=== PATIENT | female | born 1945 | race Caucasian/White ===

== ENCOUNTER 2019-04-13 10:04 | Day surgery (SDC) | payer MEDICARE, BC ==
[~2019-04-13] VITALS: Ht 167.6 cm; Wt 85.7 kg
[~2019-04-13 10:04] MED LIST: ATOR40TA21 PO; CITA20TA8; GLIPIZIDE PO; LOSA50TA2 PO; METF-480 PO; PANT40TA4 PO
[2019-04-13 10:50] VITALS: Ht 167.6 cm; Wt 85.7 kg
--- NOTE | 2019-04-13 11:02 | PREAC ---
Date/Time of Note Date/Time of Note DATE: 04/13/19 TIME: 11:00 Anesthesia Eval and Record Evaluation Time Pre-Procedure Interview DATE: 04/13/19 TIME: 11:00 Age 74 Sex female NPO: 8 hrs Preoperative diagnosis Changes of Bowel Habit Planned procedure Colonoscopy Past Medical History Past Medical History: Includes Cardio: HTN, Dyslipidemia Endo: Diabetes, Hypothyroid GI: GERD Surgery & Anesthesia Issues No known issue Meds Anticoagulation: No Beta Kati within 24 hr: No Reason Beta Kati not given: Pt. not on B-Kati Reported Medications [Glipizide] No Conflict Check, PO AM 06/20/15 Atorvastatin (Lipitor) 40 Mg Tablet, 40 MG PO DAILY 01/31/13 Losartan Potassium* (Cozaar*) 50 Mg Tablet, 50 MG PO DAILY 01/31/13 Pantoprazole* (Pantoprazole*) 40 Mg Tablet.dr, 40 MG PO DAILY 01/31/13 Metformin* (Glucophage*) 850 Mg Tablet, 850 MG PO BID 01/31/13 Citalopram Hydrobromide* (Citalopram Hydrobromide*) 20 Mg Tablet 09/11/10 Meds reviewed: Yes Allergies Coded Allergies: Penicillins (Verified Allergy, Severe, RASHES, 06/20/15) Allergies Reviewed: Yes Labs/Studies Labs Reviewed: Reviewed by anesthesiologist test: N/A Studies: ECG (n/a), CXR (n/a) Pre-procedure Exam Airway: Adequate mouth opening, Adequate thyromental dist Mallampati: Mallampati II Teeth: Normal Lung: Normal Heart: Normal ASA Physical Status ASA physical status: 3 Emergency: None Planned Anesthetic General/MAC: MAC Planned Pain Management Parenteral pain med Pre-operative Attestations Prior to commencing anesthesia and surgery, the patient was re-evaluated, there was verification of: *The patient's identity *The results of appropriate recent lab work and preoperative vital signs *The above evaluation not changing prior to induction *Anesthetic plan, risk benefits, alternative and complications discussed with patient/family; questions answered; patient/family understands, accepts and wishes to proceed. SOBIA TEMPLETON MD April 13, 2019 11:02
[2019-04-13] MEDS ORDERED: ISOSORBIDE MONO (11:07)
[2019-04-13] MEDS ORDERED: AMLODIPINE (11:07)
[2019-04-13] MEDS ORDERED: LEVOTHYROXINE (11:07)
[2019-04-13] MEDS ORDERED: ROSUVASTATIN (11:07)
[2019-04-13 11:17] VITALS: BP 189/88; PULSE 63; RESP 19
[2019-04-13] MEDS ORDERED: PROPOFOL 60 ML ONE (11:48)
--- NOTE | 2019-04-13 11:49 | PAC ---
Date/Time of Note Date/Time of Note DATE: 04/13/19 TIME: 11:49 Post-Anesthesia Notes Post-Anesthesia Note Last documented vital signs T: 98.0 Activity: WNL Respiratory function: WNL Cardiovascular function: WNL Mental status: Baseline Pain reasonably controlled: Yes Hydration appropriate: Yes Nausea/Vomiting absent: Yes SOBIA TEMPLETON MD April 13, 2019 11:49
[2019-04-13 12:00] VITALS: BP 133/74; PULSE 84; RESP 15
[2019-04-13 12:15] VITALS: BP 144/65; PULSE 62; RESP 20
--- NOTE | 2019-04-14 10:10 | CONS ---
DATE OF ADMISSION: 04/13/2019 DATE OF CONSULTATION: PATIENT NAME: RANJEET GARCIA TYPE OF CONSULTATION: Preoperative gastroenterology. Dear Dr. Parekh: I thank you very much for this kind referral. HISTORY OF PRESENT ILLNESS: Ms. Ranjeet Garcia is a 74-year-old female patient who has been referred t o me for further evaluation of change in the bowel habit with diarrhea. No history of rectal bleedin g. The patient has history of colon polyps. She is status post surgery for perforated diverticular disease. She has been losing weight, but she states that she is voluntarily doing it. No upper abdo stiven pain. PAST MEDICAL HISTORY: The patient has history of gastroesophageal reflux disease and she has been ta robi Protonix. She is on baby aspirin a day. No history of gallstones. She has history of fatty li natan. She is hypertensive. She has diabetes. No heart disease, lung problem or kidney disease. She has hyperlipidemia and hypothyroidism. She is status post back surgery and appendectomy. SOCIAL HISTORY: Nonsmoker. No alcohol abuse. FAMILY HISTORY: No family history of gastrointestinal tract neoplasm. ALLERGIES: NO DRUG ALLERGIES. MEDICATIONS: 1. Protonix 40 mg p.o. daily. 2. Losartan 50 mg p.o. daily. 3. Metformin 850 mg p.o. t.i.d. 4. Glyburide 3 mg p.o. daily. 5. Levothyroxine 25 mcg p.o. daily. 6. Atorvastatin 40 mg p.o. daily. 7. Aspirin 81 mg p.o. daily. PHYSICAL EXAMINATION: VITAL SIGNS: She is 5 feet, 6 inches tall and weighs 185 pounds, BMI 31, blood pressure 128/82. HEART: Normal heart sounds. LUNGS: Clear. ABDOMEN: Soft. No masses. Normal bowel sounds. NEUROLOGIC: Normal. IMPRESSION: 1. Change in the bowel habit with diarrhea. 2. History of colon polyps. 3. Status post surgery for perforated diverticular disease. 4. Gastroesophageal reflux disease. 5. The patient is on Protonix. 6. The patient is on baby aspirin a day. 7. Hypertension. 8. Diabetes mellitus. 9. Hyperlipidemia. 10. Hypothyroidism. 11. Status post back surgery and appendectomy. 12. Elevated body mass index. 13. History of fatty liver. 14. ALLERGY TO PENICILLIN. PLAN: 1. The patient was strongly advised to lose weight and have a good control of serum lipids because o f the fatty liver. 2. Follow up with the primary MD for the management of elevated BMI. 3. Continue Protonix for gastroesophageal reflux disease. 4. Colonoscopy for further evaluation. The procedure and possible complications are well explained to the patient. She understands and cons ents to the procedure. I thank you once again. With warmest personal regards, Dictated By: LUZ MARINA ALEGRIA/CHRISTINA Conf#: [id number] DID#: [id number]
== END 2019-04-13 15:00 | disposition home or self-care (01) ==
LOC: GIL 10:04
PROVIDERS: ATTEND Internal Medicine Gastroenterology
DX: R19.4 Change in bowel habit (principal); K64.8 Other hemorrhoids; D12.5 Benign neoplasm of sigmoid colon; I10 Essential (primary) hypertension; E11.9 Type 2 diabetes mellitus without complications; E03.9 Hypothyroidism, unspecified; Z79.82 Long term (current) use of aspirin; Z79.84 Long term (current) use of oral hypoglycemic drugs
CPT/HCPCS: 82962; 88305